=== PATIENT | female | born 1955 | race Caucasian/White ===

== ENCOUNTER 2019-12-29 08:51 | Outpatient (NON) | payer MEDICARE, SELFPAY ==
[2019-12-29 16:56] LABS: SARS-CoV-2 RNA PCR Negative
== END 2019-12-29 08:52 ==
PROVIDERS: Visit Provider Internal Medicine
DX: Z20.828 Contact with and (suspected) exposure to other viral communicable diseases (principal)
CPT/HCPCS: 87635; C9803; U0003